=== PATIENT | female | born 1985 | race Caucasian/White ===

== ENCOUNTER 2018-08-04 02:07 | Inpatient (IN) ==
[2018-08-04] MEDS ORDERED: INFLUENZA VIRUS VACCINE 0.5 ML SYRINGE IM ONE (02:28)
[2018-08-04] MEDS ORDERED: LACTATED RINGERS 1,000 ML IV SCH ×2 (02:30→03:30)
[2018-08-04 02:42] LABS: Basophils # 0.1 10*3/uL (0.0-0.2); Basophils % 0.4 % (0.0-0.8); Eosinophils # 0.3 10*3/uL (0.0-0.87); Eosinophils % 1.6 % (0.00-10.9); Hematocrit 33.4 VOL% (35.7-47.0); Immature Granulocytes Absolute 0.35 #; Lymphocytes # 3.6 10*3/uL (1.4-4.0); Mean Corpuscular HGB Conc 32.9 GM/DL (32-36); Mean Corpuscular Hemoglobin 31 PG (27-34); Mean Corpuscular Volume 94.6 FL (87-102); Mean Platelet Volume 12.5 FL (9.6-12.0); Monocytes # 1.2 10*3/uL (0.11-0.8); Monocytes % 6.9 % (1.7-12.7); Neutrophils # 12.4 10*3/uL (1.4-7.4); Neutrophils % 69.1 % (38.7-73.9); Platelet Count 198 T/CUMM (130-400); Red Blood Count 3.53 MC/CUMM (3.8-5.5); Red Cell Distribution Width 13.2 % (9.3-17.3); White Blood Count 17.9 T/CUMM (4-12)
[2018-08-04 02:46] LABS: Apearance,Urine CLEAR (Clear); Bilirubin,Urine Negative (Negative); Blood, Urine Small mg/dL (Negative); Glucose,Urine (UA) Negative (Negative); Hyaline Casts,Urine 1 /LPF (0-3); Ketones,Urine 20 mg/dL (Negative); Mucus,Urine Occasional /LPF (Occasional); Nitrite,Urine Negative (Negative); Protein,Urine Negative; RBC,Urine 2 /HPF (0-4); Squamous Epithelial Cell,Urine Occasional /HPF (0-10); Urine Color Yellow (Yellow); Urine Specific Gravity 1.011 (1.001-1.035); Urine Urobilinogen < 2.0 EU/DL (0.2-1.0); WBC,Urine 9 /HPF (0-6)
[2018-08-04 02:53] LABS: Albumin 3.1 G/DL (3.4-5.0); Bilirubin,Total 0.4 MG/DL (0.2-1.0); Osmolality,Calculated 273.7 MOS/KG (273-304); Potassium 4.8 MMOL/L (3.5-5.1); Total Protein 7.4 G/DL (6.4-8.3)
[2018-08-04] MEDS ORDERED: FAMOTIDINE 20 MG/2 ML VIAL IV ONE (03:11)
[2018-08-04] MEDS ORDERED: CITRIC ACID/SODIUM CITRATE 30 ML UDCUP PO ONE (03:11)
[2018-08-04] MEDS ORDERED: ceFAZolin 2,000 MG in PREMIX 1 EACH IV ONE (03:11)
[2018-08-04] MEDS ORDERED: OXYTOCIN/LR 20 UNIT/1,000 ML BAG IV ONE (03:14)
[2018-08-04] MEDS ORDERED: OXYTOCIN 10 UNIT/ML VIAL IM ONE (03:15)
[2018-08-04] MEDS ORDERED: BUPIVACAINE SPINAL 0.75% 2 ML AMP SPINAL ONE (03:43)
[2018-08-04] MEDS ORDERED: PHENYLEPHRINE 1 MG/10 ML SYRINGE IV ONE (04:54)
[2018-08-04] MEDS ORDERED: fentaNYL 100 MCG/2 ML VIAL ONE (04:54)
[2018-08-04] MEDS ORDERED: MIDAZOLAM 2 MG/2 ML VIAL ONE (04:54)
[2018-08-04] MEDS ORDERED: ONDANSETRON 4 MG/2 ML VIAL ONE (04:55)
[2018-08-04] MEDS ORDERED: MORPHINE 10 MG/10 ML VIAL ONE (04:55)
[2018-08-04] MEDS ORDERED: ACETAMINOPHEN 1,000 MG/100 ML VIAL IV ONE (04:58)
[2018-08-04] MEDS ORDERED: LACTATED RINGERS 1,000 ML IV ONE (04:58)
[2018-08-04] MEDS ORDERED: IBUPROFEN 800 MG TABLET PO ONE (06:00)
[2018-08-04] MEDS: guaiFENesin 200 MG/10 ML UDCUP PO PRN ×2 (06:15→19:10)
[2018-08-04] MEDS ORDERED: ONDANSETRON 4 MG/2 ML VIAL IV PRN (07:53)
[2018-08-04] MEDS ORDERED: hydrOXYzine HCL 25 MG/1 ML VIAL IM PRN (07:55)
[2018-08-04] MEDS ORDERED: RHO(D) IMMUNE GLOBULIN 300 MCG SYRINGE IM ONE (08:00)
[2018-08-04] MEDS: KETOROLAC 30 MG/1 ML VIAL IV SCH ×3 (08:16→20:57)
[2018-08-04] MEDS: MEPERIDINE 50 MG/1 ML VIAL IV PRN ×3 (08:19→17:33)
[2018-08-04] MEDS: ceFAZolin 1,000 MG in SYRINGE 1 EACH IV SCH ×2 (12:02→20:52)
[2018-08-04 12:04] LABS: Basophils # 0.1 10*3/uL (0.0-0.2); Basophils % 0.4 % (0.0-0.8); Eosinophils # 0.1 10*3/uL (0.0-0.87); Eosinophils % 0.9 % (0.00-10.9); Hematocrit 24.3 VOL% (35.7-47.0); Immature Granulocytes % 1.5 %; Immature Granulocytes Absolute 0.21 #; Lymphocytes # 2.1 10*3/uL (1.4-4.0); Lymphocytes % 15.1 % (21.3-54.2); Mean Corpuscular HGB Conc 34.2 GM/DL (32-36); Mean Corpuscular Hemoglobin 32 PG (27-34); Mean Corpuscular Volume 93.1 FL (87-102); Mean Platelet Volume 11.9 FL (9.6-12.0); Monocytes # 0.8 10*3/uL (0.11-0.8); Neutrophils # 10.4 10*3/uL (1.4-7.4); Neutrophils % 76.1 % (38.7-73.9); Red Cell Distribution Width 13.2 % (9.3-17.3); White Blood Count 13.7 T/CUMM (4-12)
[2018-08-04 12:11] LABS: Red Blood Count 2.61 MC/CUMM (3.8-5.5)
[2018-08-04 12:12] LABS: Hemoglobin 8.3 GM/DL (12.0-16.0); Platelet Count 130 T/CUMM (130-400)
[2018-08-04 12:50] LABS: Alanine Aminotransferase 29 U/L (13-56); Albumin 2.2 G/DL (3.4-5.0); Alkaline Phosphatase 84 U/L (45-117); Aspartate Amino Transferase 27 U/L (0-37); Bilirubin,Total < 0.39 MG/DL (0.2-1.0); Blood Urea Nitrogen 11 MG/DL (7-18); Calcium 8.1 MG/DL (8.5-10.1); Glucose 77 MG/DL (74-106); Osmolality,Calculated 270.8 MOS/KG (273-304); Potassium 3.7 MMOL/L (3.5-5.1); Sodium 137 MMOL/L (136-145); Total Protein 5.2 G/DL (6.4-8.3)
[2018-08-04] MEDS: DOCUSATE SODIUM 100 MG CAPSULE PO SCH ×2 (15:13→20:44)
[2018-08-04] MEDS: MULTIVITAMIN (PRENATAL) TABLET PO SCH (15:13)
[2018-08-04] MEDS: IBUPROFEN 800 MG TABLET PO SCH (23:38)
[2018-08-05] MEDS: guaiFENesin 200 MG/10 ML UDCUP PO PRN ×2 (00:26→07:20)
[2018-08-05] MEDS: oxyCODONE/ACETAMINOPHEN 5-325 MG TABLET PO PRN ×5 (03:56→21:09)
[2018-08-05 04:49] LABS: Basophils % 0.3 % (0.0-0.8); Eosinophils # 0.1 10*3/uL (0.0-0.87); Hematocrit 23.2 VOL% (35.7-47.0); Hemoglobin 7.8 GM/DL (12.0-16.0); Immature Granulocytes % 1.5 %; Immature Granulocytes Absolute 0.19 #; Lymphocytes # 2.5 10*3/uL (1.4-4.0); Lymphocytes % 19.5 % (21.3-54.2); Mean Corpuscular HGB Conc 33.6 GM/DL (32-36); Mean Corpuscular Hemoglobin 32 PG (27-34); Mean Corpuscular Volume 93.5 FL (87-102); Mean Platelet Volume 12.1 FL (9.6-12.0); Monocytes # 0.7 10*3/uL (0.11-0.8); Monocytes % 5.9 % (1.7-12.7); Neutrophils # 9.1 10*3/uL (1.4-7.4); Neutrophils % 71.8 % (38.7-73.9); Platelet Count 148 T/CUMM (130-400); Red Blood Count 2.48 MC/CUMM (3.8-5.5); Red Cell Distribution Width 13.2 % (9.3-17.3); White Blood Count 12.6 T/CUMM (4-12)
[2018-08-05] MEDS: IBUPROFEN 800 MG TABLET PO SCH ×3 (06:23→23:32)
[2018-08-05] MEDS: METOCLOPRAMIDE 10 MG TABLET PO SCH ×3 (06:24→19:54)
[2018-08-05] MEDS ORDERED: SODIUM CHLORIDE 0.9% 1,000 ML IV PRN (09:58)
[2018-08-05] MEDS: MAGNESIUM HYDROXIDE SUSP 30 ML UDCUP PO PRN ×2 (10:08→15:30)
[2018-08-05] MEDS: FERROUS SULFATE 325 MG TABLET PO SCH ×2 (10:08→21:11)
[2018-08-05] MEDS: DOCUSATE SODIUM 100 MG CAPSULE PO SCH ×2 (10:08→21:09)
[2018-08-05] MEDS: MULTIVITAMIN (PRENATAL) TABLET PO SCH (10:08)
[2018-08-05] MEDS: SIMETHICONE CHEW 80 MG TABLET PO PRN ×2 (10:08→15:30)
[2018-08-05] MEDS ORDERED: BISACODYL 10 MG SUPP RECTAL PRN (17:24)
[2018-08-05 20:03] LABS: Hematocrit 27.1 VOL% (35.7-47.0); Hemoglobin 9.3 GM/DL (12.0-16.0)
[2018-08-06] MEDS: oxyCODONE/ACETAMINOPHEN 5-325 MG TABLET PO PRN ×3 (00:39→08:44)
[2018-08-06] MEDS: METOCLOPRAMIDE 10 MG TABLET PO SCH (00:47)
[2018-08-06] MEDS: guaiFENesin 200 MG/10 ML UDCUP PO PRN (05:23)
[2018-08-06 05:36] LABS: Hematocrit 28.1 VOL% (35.7-47.0); Hemoglobin 9.4 GM/DL (12.0-16.0)
[2018-08-06] MEDS: IBUPROFEN 800 MG TABLET PO SCH (06:47)
[2018-08-06 07:27] VITALS: BP 118/69
[2018-08-06] MEDS: FERROUS SULFATE 325 MG TABLET PO SCH (08:40)
[2018-08-06] MEDS: DOCUSATE SODIUM 100 MG CAPSULE PO SCH (08:40)
[2018-08-06] MEDS: MULTIVITAMIN (PRENATAL) TABLET PO SCH (08:40)
== END 2018-08-06 11:20 | disposition home or self-care (01) | DRG 540 ==
LOC: N.LDOUT 02:07 → N.LD 02:09 → N.OB 07:45
PROVIDERS: ADMIT Obstetrics & Gynecology; ATTEND Obstetrics & Gynecology
PROC: LDCSECT (ICD-10-PCS; 2018-08-04 03:40)